=== PATIENT | female | born 1950 | race Caucasian/White ===

== ENCOUNTER 2017-02-22 11:07 | Inpatient (IN) | payer MEDICARE ==
[2017-02-22] VITALS (14 sets, daily range): BP systolic 123–146; BP diastolic 56–82
[~2017-02-22] VITALS: Ht 160 cm; Wt 65.3 kg
[~2017-02-22 11:07] MED LIST: HEPARIN SODIUM 1,000 UNIT/1ML VIAL IV ONE
[2017-02-22] MEDS ORDERED: ASPI-1035 PO (12:06)
[2017-02-22] MEDS ORDERED: GARL10005 PO (12:06)
[2017-02-22] MEDS ORDERED: PARO-41 PO (12:06)
[2017-02-22] MEDS ORDERED: INSLAN SQ (12:06)
[2017-02-22] MEDS ORDERED: VITA400C24 PO (12:06)
[2017-02-22] MEDS ORDERED: LIP40 PO (12:06)
[2017-02-22] MEDS ORDERED: ASCO500C15 PO (12:06)
[2017-02-22] MEDS ORDERED: MAGN250T31 PO (12:06)
[2017-02-22] MEDS ORDERED: LOSA50TA20 PO (12:06)
[2017-02-22] MEDS ORDERED: METF10002 PO (12:06)
[2017-02-22] MEDS ORDERED: MIDAZOLAM HCL 2 MG/2 ML VIAL ONE ×2 (12:47→13:08)
[2017-02-22] MEDS ORDERED: IODIXANOL 320MG/ML 100 ML BOTTLE IV ONE (12:47)
[2017-02-22] MEDS ORDERED: FENTANYL CITRATE/PF 50MCG/ML 2ML VIAL ONE (12:47)
[2017-02-22] MEDS ORDERED: LIDOCAINE HCL 1% 20ML VIAL (Pyxis) INJ ONE (12:48)
[2017-02-22] MEDS ORDERED: HYDROMORPHONE HCL/PF 2MG/ML (OR) ONE (12:55)
[2017-02-22] MEDS ORDERED: DIPHENHYDRAMINE 50MG/ML VIAL ONE (13:01)
[2017-02-22] MEDS ORDERED: IOVERSOL 240MG/ML 100ML BOTTLE IV ONE (13:40)
[2017-02-22] MEDS ORDERED: HYDRALAZINE 20MG/ML VIAL ONE (14:24)
[2017-02-22] MEDS ORDERED: ASPIRIN 325MG TABLET ONE (14:55)
[2017-02-22] MEDS ORDERED: CLOPIDOGREL 75MG TABLET ONE (14:56)
[2017-02-22] MEDS ORDERED: ACETAMINOPHEN 325MG TABLET PO PRN (15:00)
[2017-02-22] MEDS ORDERED: CLOPIDOGREL 75MG TABLET PO NR (15:00)
[2017-02-22] MEDS ORDERED: ATROPINE SULFATE 1MG/10ML SYR IV PRN (15:00)
[2017-02-22] MEDS ORDERED: DEXTROSE 50% WATER 50ML SYRINGE IV PRN (15:15)
[2017-02-22] MEDS: SODIUM CHLORIDE 0.9% 1,000 ML IV NR (16:00)
[2017-02-22] MEDS: BLOOD SUGAR DIAGNOSTIC STRIP TEST SCH ×2 (16:50→21:31)
[2017-02-22] MEDS ORDERED: INSULIN GLARGINE HUM REC ANLOG U SQ SCH (17:00)
[2017-02-22] MEDS: INSULIN LISPRO 100 UNITS/ML SUBCUT SCH ×2 (17:20→21:37)
[2017-02-22] MEDS ORDERED: INSULIN DETEMIR UD 100 UNITS/ML SYR SUBCUT SCH (22:00)
[2017-02-23] VITALS (10 sets, daily range): BP systolic 126–141; BP diastolic 52–69
[2017-02-23] MEDS: SODIUM CHLORIDE 0.9% 1,000 ML IV NR (02:00)
[2017-02-23 05:30] LABS: ANION GAP 11; CALCIUM 8.7 mg/dL (8.5-10.1); CARBON DIOXIDE 25 mEq/L (21-32); CHLORIDE 107 mEq/L (98-107); INDEX HEMOLYSI 1 (1-3); INDEX ICTERIC 1 (1-4); INDEX LIPEMIC 1 (1-3); UREA NITROGEN BLOOD 17 mg/dL (7-21); eGFR > 60 mL/min (>60)
[2017-02-23] MEDS: BLOOD SUGAR DIAGNOSTIC STRIP TEST SCH (06:03)
[2017-02-23 06:17] LABS: BASOPHILS % 0.5 % (0.0-2.0); EOSINOPHILS % 1.2 % (0.0-5.0); HEMOGLOBIN. 14.6 g/dL (12.0-16.0); LYMPHOCYTES % 22.3 % (20.0-50.0); MEAN CORPUSCULAR HEMOGLOBIN 30.9 pg (28.0-32.0); MEAN PLATELET VOLUME 11.7 fl (7.4-10.4); MONOCYTES % 7.4 % (2.0-8.0); NEUTROPHILS % 68.6 % (40.0-76.0); PLATELET 131 x1000/uL (130-400); RED BLOOD CELL COUNT 4.72 mill/uL (4.2-5.4); WHITE BLOOD COUNT 10.4 x1000/uL (4.5-11.0)
[2017-02-23 06:55] LABS: DIFFERENTIAL COMMENT 1
[2017-02-23 06:56] LABS: ADD RBC MORPHOLOGY YES
[2017-02-23] MEDS: INSULIN LISPRO 100 UNITS/ML SUBCUT SCH (07:36)
[2017-02-23 08:53] LABS: GIANT PLATELETS 1+; PLATELET ESTIMATE NORMAL
[2017-02-23] MEDS ORDERED: PAROXETINE HCL 20MG TABLET PO SCH (09:00)
[2017-02-23] MEDS ORDERED: LOSARTAN POTASSIUM 50 MG TABLET PO SCH (09:00)
[2017-02-23] MEDS ORDERED: ASPIRIN 81MG EC TABLET PO SCH (09:00)
[2017-02-23] MEDS ORDERED: CLOPIDOGREL 75MG TABLET PO SCH (09:30)
[2017-02-23] MEDS ORDERED: INSULIN DETEMIR UD 100 UNITS/ML SYR SUBCUT SCH (10:00)
[2017-02-23] MEDS ORDERED: ATORVASTATIN CALCIUM 40MG TABLET PO SCH (21:00)
== END 2017-02-23 11:20 | disposition home or self-care (01) | DRG 271 ==
LOC: CCL 11:07 → 3WST 11:08
PROVIDERS: ADMIT Specialist; ATTEND Specialist
PROC: 047L35Z Dilation of Left Femoral Artery with Two Drug-eluting Intraluminal Devices, Percutaneous Approach (ICD-10-PCS; principal; 2017-02-22)
PROC: 04CL3ZZ Extirpation of Matter from Left Femoral Artery, Percutaneous Approach (ICD-10-PCS; 2017-02-22)
PROC: B41G110 Fluoroscopy of Left Lower Extremity Arteries using Low Osmolar Contrast, Laser Intraoperative (ICD-10-PCS; 2017-02-22)
DX: I70.92 Chronic total occlusion of artery of the extremities (principal); I74.3 Embolism and thrombosis of arteries of the lower extremities; E11.51 Type 2 diabetes mellitus with diabetic peripheral angiopathy without gangrene; E78.5 Hyperlipidemia, unspecified; E87.5 Hyperkalemia; F17.210 Nicotine dependence, cigarettes, uncomplicated; I11.9 Hypertensive heart disease without heart failure; I70.202 Unspecified atherosclerosis of native arteries of extremities, left leg; Z79.4 Long term (current) use of insulin; Z88.5 Allergy status to narcotic agent
CPT/HCPCS: 36415; 37227; 75716; 80048; 82962; 85025; 85347; C1725; C1760; C1769; C1874; C1885; C1887; C1893; C1894; J0360; J1170; J1200; J1644; J1815; J2250; J3010; J3490; J7030; Q9967

== ENCOUNTER 2017-03-01 06:34 | Inpatient (IN) | payer MEDICARE ==
[2017-03-01] VITALS (21 sets, daily range): BP systolic 121–159; BP diastolic 49–79
[~2017-03-01] VITALS: Ht 160 cm; Wt 64.4 kg
[~2017-03-01 06:34] MED LIST changes: +ASCO500C15 PO; +ASPI-1035 PO; +GARL10005 PO; -HEPARIN SODIUM 1,000 UNIT/1ML VIAL IV ONE; +LIP40 PO; +LOSA50TA20 PO; +MAGN250T31 PO; +METF10002 PO; +PARO-41 PO; +VITA400C24 PO
[2017-03-01] MEDS ORDERED: MIDAZOLAM HCL 2 MG/2 ML VIAL ONE ×2 (08:18→08:46)
[2017-03-01] MEDS ORDERED: HYDROMORPHONE HCL/PF 2MG/ML (OR) ONE (08:18)
[2017-03-01] MEDS ORDERED: FENTANYL CITRATE/PF 50MCG/ML 2ML VIAL ONE (08:18)
[2017-03-01] MEDS ORDERED: LIDOCAINE HCL 1% 20ML VIAL (Pyxis) INJ ONE (08:19)
[2017-03-01] MEDS ORDERED: IOHEXOL-300 100 ML BOTTLE ONE (08:19)
[2017-03-01] MEDS ORDERED: DIPHENHYDRAMINE 50MG/ML VIAL ONE (08:25)
[2017-03-01] MEDS ORDERED: CHOL100026 PO (08:38)
[2017-03-01] MEDS ORDERED: CLOP75TA33 PO (08:38)
[2017-03-01] MEDS ORDERED: Lantus (08:38)
[2017-03-01] MEDS ORDERED: IOVERSOL 240MG/ML 100ML BOTTLE IV ONE (08:54)
[2017-03-01] MEDS ORDERED: ATROPINE SULFATE 0.1MG/ML 10ML DISP.SYRIN ONE (09:01)
[2017-03-01] MEDS ORDERED: ASPIRIN 325MG TABLET ONE (09:25)
[2017-03-01] MEDS ORDERED: CLOPIDOGREL 75MG TABLET ONE (09:25)
[2017-03-01] MEDS ORDERED: SODIUM CHLORIDE 0.45% 1,000 ML IV ONE (09:30)
[2017-03-01] MEDS ORDERED: ACETAMINOPHEN 325MG TABLET PO PRN (09:30)
[2017-03-01] MEDS: ASPIRIN 81MG EC TABLET PO SCH (10:15)
[2017-03-01] MEDS: CLOPIDOGREL 75MG TABLET PO SCH (10:30)
[2017-03-01] MEDS ORDERED: NICARDIPINE 100MCG/ML 10ML VIAL (CATH LAB) IV ONE (11:31)
[2017-03-01] MEDS: LOSARTAN POTASSIUM 50 MG TABLET PO SCH (11:31)
[2017-03-01] MEDS: PAROXETINE HCL 20MG TABLET PO SCH (11:31)
[2017-03-01] MEDS ORDERED: NITROGLYCERIN 50MCG/ML 10ML VIAL (CATH LAB) IV ONE (11:31)
[2017-03-01] MEDS: CHOLECALCIFEROL (D3) 1000 UNIT TABLET PO SCH (11:31)
[2017-03-01] MEDS ORDERED: ZOLPIDEM TARTRATE 5MG TABLET PO PRN (21:00)
[2017-03-01] MEDS ORDERED: LANTUS 15 UNIT SUBCUT SCH (21:00)
[2017-03-01] MEDS ORDERED: ATORVASTATIN CALCIUM 40MG TABLET PO SCH (21:00)
[2017-03-01] MEDS ORDERED: DEXTROSE 50% WATER 50ML SYRINGE IV PRN (22:00)
[2017-03-01] MEDS ORDERED: INSULIN (BASAL) DETEMIR 100 UNITS/ML 10ML SUBCUT SCH (22:00)
[2017-03-02] VITALS: BP 131/57
[2017-03-02 04:00] VITALS: BP 133/70
[2017-03-02 06:16] VITALS: BP 130/77
[2017-03-02] MEDS ORDERED: BLOOD SUGAR DIAGNOSTIC STRIP TEST SCH (06:50)
[2017-03-02 06:56] LABS: BASOPHILS % 0.9 % (0.0-2.0); EOSINOPHILS % 3.7 % (0.0-5.0); HEMATOCRIT. 41.1 % (36.0-48.0); HEMOGLOBIN. 14.1 g/dL (12.0-16.0); LYMPHOCYTES % 23.4 % (20.0-50.0); MEAN CORPUSCULAR HEMOGLOBIN 30.7 pg (28.0-32.0); MEAN CORPUSCULAR HGB CONC 34.3 g/dL (31.0-37.0); MEAN CORPUSCULAR VOLUME 89.7 fL (81.0-99.0); MEAN PLATELET VOLUME 11.7 fl (7.4-10.4); MONOCYTES % 8.5 % (2.0-8.0); NEUTROPHILS % 63.5 % (40.0-76.0); PLATELET 154 x1000/uL (130-400); RED BLOOD CELL COUNT 4.58 mill/uL (4.2-5.4); RED CELL DISTRIBUTION WIDTH 13.4 % (11.6-14.6); WHITE BLOOD COUNT 7.3 x1000/uL (4.5-11.0)
[2017-03-02] MEDS ORDERED: INSULIN LISPRO 100 UNITS/ML SUBCUT SCH (07:20)
[2017-03-02 08:06] LABS: ANION GAP 12; CALCIUM 9.4 mg/dL (8.5-10.1); CARBON DIOXIDE 28 mEq/L (21-32); CHLORIDE 105 mEq/L (98-107); INDEX HEMOLYSI 1 (1-3); INDEX ICTERIC 1 (1-4); INDEX LIPEMIC 1 (1-3); UREA NITROGEN BLOOD 17 mg/dL (7-21); eGFR > 60 mL/min (>60)
[2017-03-02] MEDS: LOSARTAN POTASSIUM 50 MG TABLET PO SCH (08:06)
[2017-03-02] MEDS: PAROXETINE HCL 20MG TABLET PO SCH (08:06)
[2017-03-02] MEDS: CHOLECALCIFEROL (D3) 1000 UNIT TABLET PO SCH (08:06)
[2017-03-02] MEDS: ASPIRIN 81MG EC TABLET PO SCH (08:07)
[2017-03-02] MEDS: CLOPIDOGREL 75MG TABLET PO SCH (08:07)
[2017-03-02 08:43] VITALS: BP 131/66
[2017-03-02] MEDS ORDERED: CLOPIDOGREL 75MG TABLET PO SCH (09:00)
[2017-03-02 09:15] VITALS: BP 131/66
[2017-03-02] MEDS ORDERED: HEPARIN SODIUM 1,000 UNIT/1ML VIAL IV ONE (13:38)
== END 2017-03-02 09:40 | disposition home or self-care (01) | DRG 247 ==
LOC: CCL 06:34 → 3WST 06:35
PROVIDERS: ADMIT Specialist; ATTEND Specialist
PROC: 027034Z Dilation of Coronary Artery, One Artery with Drug-eluting Intraluminal Device, Percutaneous Approach (ICD-10-PCS; principal; 2017-03-01)
PROC: 4A023N7 Measurement of Cardiac Sampling and Pressure, Left Heart, Percutaneous Approach (ICD-10-PCS; 2017-03-01)
PROC: B2111ZZ Fluoroscopy of Multiple Coronary Arteries using Low Osmolar Contrast (ICD-10-PCS; 2017-03-01)
PROC: B2151ZZ Fluoroscopy of Left Heart using Low Osmolar Contrast (ICD-10-PCS; 2017-03-01)
DX: I25.10 Atherosclerotic heart disease of native coronary artery without angina pectoris (principal); E78.5 Hyperlipidemia, unspecified; E11.51 Type 2 diabetes mellitus with diabetic peripheral angiopathy without gangrene; E87.5 Hyperkalemia; D64.9 Anemia, unspecified; I10 Essential (primary) hypertension; Z79.4 Long term (current) use of insulin
CPT/HCPCS: 36415; 80048; 82962; 85025; 85347; 92928; 93005; 93458; C1769; C1887; C1893; J0461; J1170; J1200; J1644; J1815; J2250; J3010; J3490; Q9967